=== PATIENT | female | born 1965 | race Caucasian/White ===

== ENCOUNTER 2019-04-21 08:30 | Emergency (ER) | payer BC ==
[2019-04-21 08:44] VITALS: BP 100/48
[2019-04-21] MEDS ORDERED: Lidocaine 1% MPF ** 5 ML VIAL INJ ONE (09:41)
--- NOTE | 2019-04-21 09:41 | UC ---
Bite Injury/Animal HPI - HPI Summary HPI Summary: Dog bite, right thumb. Today. - History of Current Complaint Chief Complaint: UCGeneralIllness Stated Complaint: RIGHT THUMB LACERATION Time Seen by Provider: 04/21/19 09:33 Hx Obtained From: Patient ?: No Severity Currently: Mild Severity Initially: Mild Pain Intensity: 4 Onset/Duration: Sudden Onset Type of Bite: Animal - dog; uptodate on shots Has Animal Been Immunized?: Yes Character: Abrasion/Laceration - ripped skin on thumb pad distal digit Associated Signs And Symptoms: Positive: Negative Hx of Bite: Provoked by: - pulling at collar Animal Available for Observation: Yes - Allergies/Home Medications Allergies/Adverse Reactions: Allergies Allergy/AdvReac Type Severity Reaction Status Date / Time No Known Allergies Allergy Verified 04/21/19 08:44 PMH/Surg Hx/FS Hx/Imm Hx Endocrine History: Hypothyroidism GI/ History: Gastroesophageal Reflux - Surgical History Surgical History: Yes - Family History Known Family History: Positive: Diabetes - Social History Lives: With Family - 2 sons Alcohol Use: None Substance Use Type: None Smoking Status (MU): Never Smoked Tobacco Have You Smoked in the Last Year: No Review of Systems All Other Systems Reviewed And Are Negative: Yes Constitutional: Positive: Negative Respiratory: Positive: Negative Cardiovascular: Positive: Negative Gastrointestinal: Positive: Negative Musculoskeletal: Positive: Other: - laceration right thumb Is Patient Immunocompromised?: No Physical Exam Triage Information Reviewed: Yes Appearance: Well-Appearing, No Pain Distress Vital Signs: Initial Vital Signs Temp 98.5 F 04/21/19 08:40 Pulse 75 04/21/19 08:40 Resp 15 04/21/19 08:40 BP 100/48 04/21/19 08:40 Pulse Ox 100 04/21/19 08:40 Vital Signs Reviewed: Yes ENT: Positive: Normal ENT inspection Respiratory Exam: Normal Respiratory: Positive: Chest non-tender, Lungs clear Cardiovascular: Positive: RRR, No Murmur Abdomen Description: Positive: Nontender, No Organomegaly Musculoskeletal: Positive: Other: - 2.5 cm laceration on the distal digit, right thumb, extending from the posterior aspect of the nail into the thumb pad ; skin is pulled open by the bite and fat is protruding creating a gap of approximately 1 cm. Neurological Exam: Normal Procedures - Laceration/Wound Repair 1 Location: Other - RIGHT THUMB: 2.5 cm laceration on the distal digit, right thumb, extending from the posterior aspect of the nail into the thumb pad; skin is pulled open by the bite and fat is protruding creating a gap of approximately 1 cm. Description: Linear Anesthesia: Local, 1.0%, Lido Betadine Prep?: Yes Laceration/Wound Explored: clean Closure: Single Layer - 2 4-0 prolene; edges LOOSELY APPROXIMATED to bring skin closer together but allow drainage Debridement: minimal Suture Type: Prolene Number of Sutures: 2 Layer Closure?: No Sterile Dressing Applied?: Yes - cleaned, antibiotic ointment, dressed Bite Injury Course/Dx - Course Course Of Treatment: 54-year-old with a 2.5 cm slashing type dog bite to the right thumb today. The dog is her own. She was moving a dog collar when it accidentally bit her. She has no bony tenderness. There is a gaping wound, however, of approximately 0.5 - 1.0 cm along the posterior aspect of the right thumb, distal digit extending from the nail edge. I discussed the possibility of not closing this wound with the patient. She was concerned about the size of the wound and its healing. Procedure was carried out. I put 2 4. 0 Prolene sutures to loosely approximate the edges of the wound. The patient knows to watch for any infection. I'll start her on Augmentin. She will be followed up on April 27 with her own doctor. - Differential Dx/Diagnosis Differential Diagnosis/HQI/PQRI: Laceration, Other - dog bite Provider Diagnosis: Dog bite Discharge ED - Sign-Out/Discharge Documenting (check all that apply): Patient Departure All imaging exams completed and their final reports reviewed: No Studies - Discharge Plan Condition: Stable Disposition: HOME Prescriptions: Amoxicillin/Clavulanate TAB* [Augmentin TAB 875*] 875 mg PO BID #14 tab MDD 2 Patient Education Materials: Animal Bite (ED) Referrals: Edwin Hirsch MD [Primary Care Provider] - Additional Instructions: WE DISCUSSED: PLEASE SEEK CARE AT THE EMERGENCY DEPARTMENT IF SYMPTOMS WORSEN OR IF NEW SYMPTOMS DEVELOP. FOLLOW UP WITH YOUR PRIMARY CARE PHYSICIAN IF CONDITION CONTINUES BEYOND 3 DAYS WITHOUT IMPROVEMENT. YOUR DIAGNOSIS IS: Dog bite of the right thumb. YOUR PRESCRIPTION RECOMMENDATION IS: Augmentin, 875, one pill twice a day for 7 days. Other instructions: Watch closely for any signs of infection. As we discussed, I have only loosely approximated the edges of your wound to allow it to drain. I have also started you on an antibiotic to prevent infection. You can soak this in warm water. Follow-up with your doctor on April 27, but the bite needs to be watched closely to make sure that the dog bite is not causing an infection. If there are signs of infection, the sutures will be taken out. FOR PAIN AND/OR SLEEP: For pain: Ibuprofen (Motrin and other brand names) 400-600mg PLUS acetaminophen (Tylenol and other brand names) 500mg - 1000mg every 8 hours. - Billing Disposition and Condition Condition: STABLE Disposition: Home
[2019-04-21] MEDS ORDERED: Tetan/Diph/Pertus SYR(Tdap)* 0.5 ML SYR(BOOSTRIX) use SYR contains LATEX IM ONE (09:43)
== END 2019-04-21 11:40 | disposition home or self-care (01) ==
LOC: UCEAST 08:30
DX: S61.051A Open bite of right thumb without damage to nail, initial encounter (principal); W54.0XXA Bitten by dog, initial encounter; Y92.9 Unspecified place or not applicable
CPT/HCPCS: 12001; 90471; 90715; 99212; G0463